=== PATIENT | male | born 1945 | race Caucasian/White ===

== ENCOUNTER → 2017-03-15 | Outpatient (CLI) | payer BC ==
[2017-03-15 10:50] LABS: URINE WBC 0 /hpf (0-3)
[2017-03-15 11:38] LABS: PH-URINE 6.5 (5.0 - 8.0); URINE APPEARANCE CLEAR; URINE BILIRUBIN NEGATIVE (NEGATIVE); URINE BLOOD NEGATIVE (NEGATIVE); URINE COLOR YELLOW; URINE GLUCOSE NEGATIVE (NEGATIVE); URINE KETONE NEGATIVE (NEGATIVE); URINE LEUKOCYTE ESTERASE NEGATIVE (NEGATIVE); URINE NITRATE NEGATIVE (NEGATIVE); URINE PROTEIN(semi-quant) NEGATIVE (NEGATIVE); URINE UROBILINOGEN NORMAL (NORMAL)
== END ==
LOC: LAB 10:47
PROVIDERS: Nurse Practitioner Family
DX: Z02.4 Encounter for examination for driving license (principal)

== ENCOUNTER → 2020-01-19 | Outpatient (CLI) | payer BC | LOC: RAD 10:15 | DX: M79.89 Other specified soft tissue disorders (principal); Z85.830 Personal history of malignant neoplasm of bone; Z85.818 Personal history of malignant neoplasm of other sites of lip, oral cavity, and pharynx ==

== ENCOUNTER → 2020-08-15 | Outpatient (CLI) | payer BC | LOC: RAD 14:32 | DX: M25.562 Pain in left knee (principal) ==

== ENCOUNTER → 2021-07-08 | Outpatient (CLI) | payer BC ==
[2021-07-08 19:35] LABS: ALBUMIN 3.4 g/dL (3.4-4.8); POTASSIUM 4.3 mmol/L (3.5-5.1)
[2021-07-08 19:36] LABS: CALCIUM 8.8 mg/dL (8.3-10.5)
[2021-07-08 19:38] LABS: TOTAL PROTEIN 5.6 g/dL (6.2-8.1)
[2021-07-08 19:39] LABS: TOTAL BILIRUBIN 0.7 mg/dL (0.2-1.2)
== END ==
LOC: LAB 18:07
PROVIDERS: Family Medicine
DX: Z01.89 Encounter for other specified special examinations (principal)

== ENCOUNTER → 2021-07-28 | Outpatient (CLI) | payer BC | LOC: VAS 10:46 → RAD 11:00 | DX: J90 Pleural effusion, not elsewhere classified (principal); J94.8 Other specified pleural conditions ==

== ENCOUNTER → 2021-09-16 | Outpatient (CLI) | payer BC | LOC: RAD 15:03 | DX: M48.56XA Collapsed vertebra, not elsewhere classified, lumbar region, initial encounter for fracture (principal); M51.36 Other intervertebral disc degeneration, lumbar region; J90 Pleural effusion, not elsewhere classified ==

== ENCOUNTER → 2021-09-22 | Outpatient (CLI) | payer BC | LOC: RAD 10:48 | DX: M48.061 Spinal stenosis, lumbar region without neurogenic claudication (principal); M48.56XA Collapsed vertebra, not elsewhere classified, lumbar region, initial encounter for fracture; N28.89 Other specified disorders of kidney and ureter | CPT/HCPCS: A9575 ==

== ENCOUNTER 2021-12-05 22:25 | Emergency (ER) | payer BC ==
[2021-12-05] MEDS ORDERED: NEURONTIN300 MG/CAP PO (22:35)
[2021-12-05] MEDS ORDERED: OXYCODONE HYDROC5 M1 PO (22:36)
[2021-12-05] MEDS ORDERED: ACETAMINOPHEN325 M1 PO (22:37)
[2021-12-05] MEDS ORDERED: ZYRTEC10 M3 PO (22:38)
[2021-12-05 23:15] LABS: HEMATOCRIT 32.1 % (42.0-52.0); HEMOGLOBIN 10.8 g/dL (13.5-18.0); MEAN CELL VOLUME 93 fl (78-100); MEAN CORPUSCULAR HEMOGLOBIN 31 pg (27-31); MEAN CORPUSCULAR HGB CONC 34 g/dL (33-37); MEAN PLATELET VOLUME 8.6 fl (7.4-10.4); PLATELET COUNT 261 K/mm3 (130-400); RED BLOOD COUNT 3.47 M/mm3 (4.20-5.60); RED CELL DISTRIBUTION WIDTH 16.9 % (11.5-14.5); WHITE BLOOD COUNT 9.4 K/mm3 (4.8-10.8)
[2021-12-05 23:23] LABS: ALBUMIN 2.9 g/dL (3.4-4.8)
[2021-12-05 23:25] LABS: CALCIUM 8.5 mg/dL (8.3-10.5)
[2021-12-05 23:28] LABS: TOTAL BILIRUBIN 0.8 mg/dL (0.2-1.2)
[2021-12-05 23:29] LABS: BAND 5 % (0-10); LYMPHOCYTE 4 % (20-51); MONOCYTE 6 % (3-10); NEUTROPHILS 85 % (42-75)
[2021-12-05 23:33] LABS: POTASSIUM 2.9 mmol/L (3.5-5.1)
[2021-12-06 00:02] LABS: MAGNESIUM 1.62 mg/dL (1.60-2.60)
[2021-12-06 01:17] VITALS: BP 137/78
== END 2021-12-06 01:19 | disposition other institution (70) ==
LOC: ED 22:25
PROVIDERS: Nurse Practitioner Family
DX: J69.0 Pneumonitis due to inhalation of food and vomit (principal); Z28.310 Unvaccinated for COVID-19; Z20.822 Contact with and (suspected) exposure to COVID-19
CPT/HCPCS: J0696; J7030

== ENCOUNTER 2021-12-06 00:30 | Inpatient (IN) | payer MEDICARE, BC ==
[~2021-12-06] VITALS: Ht 70 cm; Wt 67.9 kg
[~2021-12-06 00:30] MED LIST: ACETAMINOPHEN325 M1 PO; NEURONTIN300 MG/CAP PO; OXYCODONE HYDROC5 M1 PO; ZYRTEC10 M3 PO
[2021-12-06 02:15] VITALS: BP 98/62
[2021-12-06 06:13] VITALS: BP 118/74
[2021-12-06 07:03] LABS: URINE APPEARANCE CLOUDY; URINE COLOR YELLOW
[2021-12-06 07:04] LABS: URINE BILIRUBIN NEGATIVE (NEGATIVE); URINE BLOOD NEGATIVE (NEGATIVE); URINE GLUCOSE NEGATIVE (NEGATIVE); URINE KETONE NEGATIVE (NEGATIVE); URINE LEUKOCYTE ESTERASE NEGATIVE (NEGATIVE); URINE NITRATE NEGATIVE (NEGATIVE); URINE PROTEIN(semi-quant) TRACE (NEGATIVE); URINE UROBILINOGEN 1 mg/dL (NORMAL); URINE WBC 0-1 /hpf (0-3)
[2021-12-06 10:08] VITALS: BP 122/71
[2021-12-06 13:56] VITALS: BP 119/75
[2021-12-06 18:18] VITALS: BP 147/77
[2021-12-06 22:29] VITALS: BP 155/81
[2021-12-07 06:17] VITALS: BP 143/79
[2021-12-07 10:01] VITALS: BP 158/85
[2021-12-07 13:50] VITALS: BP 144/72
[2021-12-07 17:53] VITALS: BP 154/88
[2021-12-07 22:17] VITALS: BP 149/79
[2021-12-08 01:49] VITALS: BP 144/61
[2021-12-08 06:04] VITALS: BP 159/88
[2021-12-08 07:41] LABS: HEMATOCRIT 28.9 % (42.0-52.0); HEMOGLOBIN 9.5 g/dL (13.5-18.0); MEAN CELL VOLUME 95 fl (78-100); MEAN CORPUSCULAR HEMOGLOBIN 31 pg (27-31); MEAN CORPUSCULAR HGB CONC 33 g/dL (33-37); MEAN PLATELET VOLUME 8.5 fl (7.4-10.4); PLATELET COUNT 259 K/mm3 (130-400); RED BLOOD COUNT 3.03 M/mm3 (4.20-5.60); WHITE BLOOD COUNT 5.6 K/mm3 (4.8-10.8)
[2021-12-08 07:50] LABS: ALBUMIN 2.5 g/dL (3.4-4.8)
[2021-12-08 07:51] LABS: POTASSIUM 3.3 mmol/L (3.5-5.1)
[2021-12-08 07:52] LABS: CALCIUM 8.4 mg/dL (8.3-10.5)
[2021-12-08 07:53] LABS: TOTAL PROTEIN 5.3 g/dL (6.2-8.1)
[2021-12-08 07:55] LABS: TOTAL BILIRUBIN 0.4 mg/dL (0.2-1.2)
[2021-12-08 08:38] LABS: LYMPHOCYTE 9 % (20-51); MONOCYTE 10 % (3-10); NEUTROPHILS 80 % (42-75)
[2021-12-08 10:10] VITALS: BP 125/65
[2021-12-08 13:53] VITALS: BP 170/91
[2021-12-08 17:35] VITALS: BP 188/97
[2021-12-08 22:19] VITALS: BP 171/94
[2021-12-09 01:56] VITALS: BP 145/93
[2021-12-09 05:36] VITALS: BP 157/89
[2021-12-09 06:50] LABS: HEMATOCRIT 29.9 % (42.0-52.0); HEMOGLOBIN 10.8 g/dL (13.5-18.0); MEAN CELL VOLUME 95 fl (78-100); MEAN CORPUSCULAR HEMOGLOBIN 34 pg (27-31); MEAN CORPUSCULAR HGB CONC 36 g/dL (33-37); MEAN PLATELET VOLUME 9.3 fl (7.4-10.4); PLATELET COUNT 284 K/mm3 (130-400); RED BLOOD COUNT 3.16 M/mm3 (4.20-5.60); RED CELL DISTRIBUTION WIDTH 16.7 % (11.5-14.5); WHITE BLOOD COUNT 4.6 K/mm3 (4.8-10.8)
[2021-12-09 06:57] LABS: ALBUMIN 2.7 g/dL (3.4-4.8); POTASSIUM 3.1 mmol/L (3.5-5.1)
[2021-12-09 06:58] LABS: CALCIUM 8.5 mg/dL (8.3-10.5)
[2021-12-09 06:59] LABS: TOTAL PROTEIN 5.8 g/dL (6.2-8.1)
[2021-12-09 07:01] LABS: TOTAL BILIRUBIN 0.5 mg/dL (0.2-1.2)
[2021-12-09 07:29] LABS: NEUTROPHILS 79 % (42-75)
[2021-12-09 07:30] LABS: LYMPHOCYTE 9 % (20-51); MONOCYTE 10 % (3-10)
[2021-12-09 09:39] VITALS: BP 118/75
[2021-12-09] MEDS ORDERED: AZITHROMYC100 MG/5 M PO (13:02)
[2021-12-09] MEDS ORDERED: CEFDINIR250 MG/5 M PO (13:03)
[2021-12-09] MEDS ORDERED: EFFER-K20 MEQ PO (13:06)
[2021-12-09] MEDS ORDERED: LIQUITUSS200 MG/5 M PO (13:06)
[2021-12-09 13:36] VITALS: BP 152/88
== END 2021-12-09 14:15 | disposition home health service (06) | DRG 179 ==
LOC: MED/SURG 00:30
PROVIDERS: Nurse Practitioner; ADMIT Nurse Practitioner Family
DX: J69.0 Pneumonitis due to inhalation of food and vomit (principal); E87.6 Hypokalemia; N28.1 Cyst of kidney, acquired; E16.3 Increased secretion of glucagon; G89.29 Other chronic pain; Z96.642 Presence of left artificial hip joint; Z85.89 Personal history of malignant neoplasm of other organs and systems; Z87.891 Personal history of nicotine dependence; Z98.890 Other specified postprocedural states
CPT/HCPCS: J0696; J1650; J7030

== ENCOUNTER → 2021-12-15 | Outpatient (CLI) | payer BC ==
[~2021-12-15] MED LIST changes: +AZITHROMYC100 MG/5 M PO; +CEFDINIR250 MG/5 M PO; +EFFER-K20 MEQ PO; +LIQUITUSS200 MG/5 M PO
[2021-12-15 14:44] LABS: POTASSIUM 3.6 mmol/L (3.5-5.1)
[2021-12-15 14:45] LABS: CALCIUM 8.5 mg/dL (8.3-10.5)
== END ==
LOC: LAB 14:18
PROVIDERS: Physician Assistant
DX: E87.6 Hypokalemia (principal)

== ENCOUNTER 2022-02-12 12:29 | Emergency (ER) | payer BC ==
[2022-02-12] MEDS ORDERED: GABAPENTIN TAB600 MG PO (12:45)
[2022-02-12] MEDS ORDERED: MUCINEX 60600 MG/TA1 PO (12:45)
[2022-02-12] MEDS ORDERED: NORTRIPTYLINE H10 M2 PO (12:46)
[2022-02-12] MEDS ORDERED: SCOPOLAMINE1 EACH TD (12:46)
[2022-02-12 13:34] LABS: HEMATOCRIT 30.2 % (42.0-52.0); HEMOGLOBIN 12.1 g/dL (13.5-18.0); MEAN CELL VOLUME 99 fl (78-100); MEAN CORPUSCULAR HEMOGLOBIN 40 pg (27-31); MEAN CORPUSCULAR HGB CONC 40 g/dL (33-37); MEAN PLATELET VOLUME 9.1 fl (7.4-10.4); PLATELET COUNT 250 K/mm3 (130-400); RED BLOOD COUNT 3.06 M/mm3 (4.20-5.60); RED CELL DISTRIBUTION WIDTH 15.4 % (11.5-14.5); WHITE BLOOD COUNT 7.1 K/mm3 (4.8-10.8)
[2022-02-12 13:42] LABS: ALBUMIN 3.2 g/dL (3.4-4.8)
[2022-02-12 13:43] LABS: POTASSIUM 3.6 mmol/L (3.5-5.1)
[2022-02-12 13:44] LABS: CALCIUM 9.3 mg/dL (8.3-10.5)
[2022-02-12 13:47] LABS: TOTAL BILIRUBIN 0.9 mg/dL (0.2-1.2)
[2022-02-12 14:16] LABS: LYMPHOCYTE 5 % (20-51); MONOCYTE 9 % (3-10); NEUTROPHILS 86 % (42-75)
[2022-02-12 15:54] LABS: PH-URINE 5.5 (5.0 - 8.0); URINE APPEARANCE CLEAR; URINE BILIRUBIN NEGATIVE (NEGATIVE); URINE BLOOD NEGATIVE (NEGATIVE); URINE COLOR YELLOW; URINE GLUCOSE NEGATIVE (NEGATIVE); URINE KETONE NEGATIVE (NEGATIVE); URINE LEUKOCYTE ESTERASE NEGATIVE (NEGATIVE); URINE NITRATE NEGATIVE (NEGATIVE); URINE PROTEIN(semi-quant) TRACE (NEGATIVE); URINE UROBILINOGEN 1 mg/dL (NORMAL); URINE WBC 0-1 /hpf (0-3)
[2022-02-12] MEDS ORDERED: AZITHROMYCIN 250MGPK PO (16:53)
[2022-02-12] MEDS ORDERED: LEVOFLOXACIN750 MG PO (16:54)
[2022-02-12 17:27] VITALS: BP 128/81
== END 2022-02-12 17:17 | disposition home or self-care (01) ==
LOC: ED 12:29
PROVIDERS: Nurse Practitioner
DX: J18.9 Pneumonia, unspecified organism (principal); Z28.310 Unvaccinated for COVID-19; Z20.822 Contact with and (suspected) exposure to COVID-19
CPT/HCPCS: J7030

== ENCOUNTER → 2022-07-21 | Outpatient (CLI) | payer BC ==
[~2022-07-21] MED LIST changes: +AZITHROMYCIN 250MGPK PO; +GABAPENTIN TAB600 MG PO; +LEVOFLOXACIN750 MG PO; +MUCINEX 60600 MG/TA1 PO; +NORTRIPTYLINE H10 M2 PO; +SCOPOLAMINE1 EACH TD
[2022-07-21 14:11] LABS: HEMATOCRIT 34.6 % (42.0-52.0); HEMOGLOBIN 11.5 g/dL (13.5-18.0); MEAN CELL VOLUME 101 fl (78-100); MEAN CORPUSCULAR HEMOGLOBIN 34 pg (27-31); MEAN CORPUSCULAR HGB CONC 33 g/dL (33-37); MEAN PLATELET VOLUME 9.1 fl (7.4-10.4); PLATELET COUNT 224 K/mm3 (130-400); RED BLOOD COUNT 3.43 M/mm3 (4.20-5.60); RED CELL DISTRIBUTION WIDTH 15.2 % (11.5-14.5); WHITE BLOOD COUNT 3.8 K/mm3 (4.8-10.8)
[2022-07-21 14:18] LABS: ALBUMIN 2.8 g/dL (3.4-4.8); POTASSIUM 3.6 mmol/L (3.5-5.1)
[2022-07-21 14:19] LABS: CALCIUM 8.9 mg/dL (8.3-10.5)
[2022-07-21 14:21] LABS: TOTAL PROTEIN 6.5 g/dL (6.2-8.1)
[2022-07-21 14:22] LABS: TOTAL BILIRUBIN 0.7 mg/dL (0.2-1.2)
[2022-07-21 14:32] LABS: LYMPHOCYTE 13 % (20-51); MONOCYTE 6 % (3-10); NEUTROPHILS 80 % (42-75)
== END ==
LOC: LAB 13:47
PROVIDERS: Internal Medicine
DX: C01 Malignant neoplasm of base of tongue (principal); Z91.89 Other specified personal risk factors, not elsewhere classified